=== PATIENT | female | born 1985 | race Caucasian/White ===

== ENCOUNTER 2016-07-24 06:29 | Inpatient (IN) | payer OTHER ==
[2016-07-24] VITALS (7 sets, daily range): BP systolic 122–135; RESP 18; TEMP 97.8–98.5; Ht 160 cm; Wt 79.8 kg
[~2016-07-24] VITALS: Ht 160 cm; Wt 79.8 kg
[2016-07-24] MEDS ORDERED: LIDOCAINE 1% 30 ML PF INFILTRATE ONE (07:40)
[2016-07-24] MEDS ORDERED: METOCLOPRAMIDE 10 MG/2 ML VIAL IV PUSH PRN (07:40)
[2016-07-24] MEDS ORDERED: OXYTOCIN 15 UNITS/250 ML NS 250 ML IV SCH (07:40)
[2016-07-24] MEDS ORDERED: PROMETHAZINE 25 MG/ML VIAL IV PRN (07:40)
[2016-07-24] MEDS ORDERED: TERBUTALINE 1 MG/ML VIAL SUBQ PRN (07:40)
[2016-07-24] MEDS ORDERED: ACETAMINOPHEN 325 MG TAB PO PRN (07:40)
[2016-07-24] MEDS ORDERED: FAMOTIDINE 20 MG TAB PO PRN (07:40)
[2016-07-24] MEDS ORDERED: OXYTOCIN 15 UNITS/250 ML NS 15 UNITS in PART FILL PIGGYBACK 1 EA IV SCH ×2 (07:40→15:10)
[2016-07-24] MEDS ORDERED: LIDOCAINE 1% BUFFERED 1 ML SYR INTRADERM PRN (07:40)
[2016-07-24] MEDS ORDERED: ONDANSETRON 4 MG VIAL IV PRN (07:40)
[2016-07-24] MEDS ORDERED: FAMOTIDINE 20 MG INJ IV PRN (07:40)
[2016-07-24] MEDS ORDERED: CEFAZOLIN (LD/OB) 100 ML IV PRN (07:40)
[2016-07-24] MEDS ORDERED: ALU/MAG/SIM 30 ML UDC PO PRN (07:40)
[2016-07-24] MEDS ORDERED: PENICILLIN G 5 MU in SODIUM CHLORIDE 0.9% 250 ML IV ONE (07:40)
[2016-07-24] MEDS ORDERED: MORPHINE 5 MG/1 ML VIAL IV PRN (07:40)
[2016-07-24] MEDS ORDERED: OXYTOCIN 15 UNITS/250 ML NS 500 ML IV ONE (07:55)
[2016-07-24] MEDS: LACT RINGERS 1,000 ML IV SCH ×3 (07:59→17:29)
[2016-07-24] MEDS ORDERED: ROPIV/FENT 0.2%-2MCG/ML 100 ML EPIDURAL ONE (12:40)
[2016-07-24] MEDS ORDERED: FENTANYL 100 MCG/2 ML AMP ONE (12:41)
[2016-07-24] MEDS ORDERED: MISSING DOSE XX ONE (13:00)
[2016-07-24] MEDS: **ONLY ANESTEHSIA MAY ORDER OPIATES WHILE ON EPIDURAL XX SCH ×2 (13:10→20:00)
[2016-07-24] MEDS ORDERED: ROPIV/FENT 0.2%-2MCG/ML 100 ML EPIDURAL SCH (13:10)
[2016-07-24] MEDS ORDERED: LACT RINGERS 500 ML IV ONE (13:10)
[2016-07-24] MEDS ORDERED: SODIUM CHLORIDE 0.9% 500 ML IV PRN (13:10)
[2016-07-24] MEDS ORDERED: LACT RINGERS 500 ML IV PRN (13:10)
[2016-07-24] MEDS ORDERED: FENTANYL 100 MCG/2 ML AMP EPIDURAL ONE (13:10)
[2016-07-24] MEDS: PENICILLIN G 2.5 MU in SODIUM CHLORIDE 0.9% 100 ML IV SCH ×3 (13:19→20:00)
[2016-07-24] MEDS ORDERED: MEASLES,MUMPS,RUBELLA VAC SUBQ.VACC ONE (19:15)
[2016-07-24] MEDS: MISOPROSTOL 200 MCG TAB PO SCH ×2 (19:15→23:28)
[2016-07-24] MEDS ORDERED: ZOLPIDEM 5 MG TAB PO PRN (19:15)
[2016-07-24] MEDS ORDERED: ASTRINGENT MED PADS 40'S TOPICAL PRN (19:15)
[2016-07-24] MEDS ORDERED: MAG HYDROX 30 ML UDC PO PRN (19:15)
[2016-07-24] MEDS ORDERED: TDaP 0.5 ML VIAL IM.VACC ONE (19:15)
[2016-07-24] MEDS ORDERED: DERMOPLAST SPRAY TOPICAL PRN (19:15)
[2016-07-24] MEDS ORDERED: OXYTOCIN 15 UNITS/250 ML NS 250 ML IV ONE ×2 (19:15→20:12)
[2016-07-24] MEDS ORDERED: MISOPROSTOL 100 MCG TAB ONE (20:54)
[2016-07-24] MEDS: Ibuprofen 600 MG TAB PO SCH (23:30)
[2016-07-25 02:15] VITALS: BP_SYST 118; RESP 18; TEMP 98.4
[2016-07-25 05:23] VITALS: BP_SYST 139; RESP 20; TEMP 98
[2016-07-25] MEDS: Ibuprofen 600 MG TAB PO SCH ×4 (05:42→23:43)
[2016-07-25] MEDS: DOCUSATE SOD 100 MG CAP PO SCH (09:02)
[2016-07-25 10:58] VITALS: BP_SYST 125; TEMP 97.4
[2016-07-25 10:59] VITALS: RESP 18
[2016-07-25 17:23] VITALS: BP_SYST 129; TEMP 98.2
[2016-07-26] MEDS: Ibuprofen 600 MG TAB PO SCH (05:51)
[2016-07-26 05:52] VITALS: BP_SYST 136; RESP 18; TEMP 98.3
[2016-07-26] MEDS: DOCUSATE SOD 100 MG CAP PO SCH (08:34)
[2016-07-26 10:29] VITALS: BP_SYST 145; TEMP 98.1
[2016-07-26 10:30] VITALS: RESP 18
[2016-07-26 13:53] VITALS: BP_SYST 145; RESP 18; TEMP 98.1
== END 2016-07-26 11:43 | disposition home or self-care (01) | DRG 775 ==
LOC: LD 06:29 → OB 21:42
PROVIDERS: ADMIT Obstetrics & Gynecology Reproductive Endocrinology; ATTEND Obstetrics & Gynecology Reproductive Endocrinology
PROC: 10E0XZZ Delivery of Products of Conception, External Approach (ICD-10-PCS; principal; 2016-07-24)
PROC: 3E033VJ Introduction of Other Hormone into Peripheral Vein, Percutaneous Approach (ICD-10-PCS; 2016-07-24)
PROC: 10907ZC Drainage of Amniotic Fluid, Therapeutic from Products of Conception, Via Natural or Artificial Opening (ICD-10-PCS; 2016-07-24)
DX: O13.4 Gestational [pregnancy-induced] hypertension without significant proteinuria, complicating childbirth (principal); Z3A.38 38 weeks gestation of pregnancy; Z37.0 Single live birth; O99.824 Streptococcus B carrier state complicating childbirth
CPT/HCPCS: 80053; 85025; 86850; 86870; 86900; 86901; 86970